=== PATIENT | male | born 1995 | race Caucasian/White ===

== ENCOUNTER 2021-05-16 22:20 | Emergency (ER) | payer OTHER ==
[2021-05-16 22:29] VITALS: BP 140/85; PULSE 78; TEMP 98.4; BMI 21.9
[2021-05-16] MEDS ORDERED: DIPHTH,PERTUSS(ACELL),TET 0.5 ML DISP.SYRIN IM ONE ×2 (22:30→22:35)
[2021-05-16] MEDS ORDERED: AMOX TR/POT CLAV 875MG/125MG TABLETS (FP) PO ONE (22:33)
[2021-05-16] MEDS ORDERED: AMOX TR/POT CLAV 875MG/125MG TABLETS (FP) ONE (22:35)
== END 2021-05-16 22:42 | disposition home or self-care (01) ==
LOC: FER 22:20
PROC: 3E0234Z Introduction of Serum, Toxoid and Vaccine into Muscle, Percutaneous Approach (ICD-10-PCS; principal; 2021-05-16)
DX: S67.02XA Crushing injury of left thumb, initial encounter (principal); Y04.1XXA Assault by human bite, initial encounter
CPT/HCPCS: 90715; 99283-25

== ENCOUNTER 2022-01-01 21:58 | Emergency (ER) | payer OTHER ==
[2022-01-01 22:03] VITALS: BP 140/91; PULSE 95; RESP 18; TEMP 99.1; BMI 21.9
== END 2022-01-01 22:35 | disposition home or self-care (01) ==
LOC: FER 21:58
DX: Z77.21 Contact with and (suspected) exposure to potentially hazardous body fluids (principal)
CPT/HCPCS: 99281-25

== ENCOUNTER 2022-10-28 18:44 | Emergency (ER) | payer OTHER ==
[2022-10-28 18:55] VITALS: BP 124/72; PULSE 71; RESP 18; TEMP 98.4; BMI 22.5
[2022-10-28] MEDS ORDERED: IBUPROFEN 600 MG TABLET (FP) PO ONE ×2 (19:34→20:05)
[2022-10-28] MEDS ORDERED: IBUPROFEN 400 MG TABLET (FP) PO ONE (19:52)
== END 2022-10-28 20:21 | disposition home or self-care (01) ==
LOC: FER 18:44
DX: S80.01XA Contusion of right knee, initial encounter (principal); M25.561 Pain in right knee; Y04.0XXA Assault by unarmed brawl or fight, initial encounter
CPT/HCPCS: 73562-TC-RT-FY; 99283-25

== ENCOUNTER 2023-01-24 21:09 | Emergency (ER) | payer OTHER ==
[2023-01-24 21:23] VITALS: BP 135/87; PULSE 71; RESP 18; TEMP 98; BMI 21.9
== END 2023-01-24 22:21 | disposition home or self-care (01) ==
LOC: FER 21:09
DX: S80.01XA Contusion of right knee, initial encounter (principal); W01.198A Fall on same level from slipping, tripping and stumbling with subsequent striking against other object, initial encounter; Y93.01 Activity, walking, marching and hiking
CPT/HCPCS: 73560-TC-RT-FY; 99283-25

== ENCOUNTER 2023-06-02 22:44 | Emergency (ER) | payer OTHER ==
[2023-06-02 22:54] VITALS: BP 125/82; PULSE 70; RESP 16; TEMP 98.8; BMI 21.9
== END 2023-06-02 23:07 | disposition home or self-care (01) ==
LOC: FER 22:44
DX: M25.561 Pain in right knee (principal); X50.1XXA Overexertion from prolonged static or awkward postures, initial encounter
CPT/HCPCS: 99283-25